=== PATIENT | female | born 1975 | race Caucasian/White ===

== ENCOUNTER 2020-08-10 12:39 | Inpatient (IN) ==
[2020-08-10] MEDS ORDERED: 0.9 % Sodium Chloride 1,000 ML IVC STA (13:17)
[2020-08-10 13:18] LABS: Basophils # 0.1 K/mcL (0.0-0.2); Basophils % 0.6 %; Eosinophils # 0.1 K/mcL (0.0-0.6); Eosinophils % 1.8 %; Hematocrit 48.5 % (35.3-44.9); Hemoglobin 15.1 g/dL (11.5-15.4); Immature Granulocytes % 0.8 % (0-4); Lymphocytes # 1.6 K/mcL (0.6-4.6); Lymphocytes % 19.4 %; Mean Corpuscular HGB Conc 31.1 g/dL (31.6-35.5); Mean Corpuscular Hemoglobin 29.8 pg (28.0-33.3); Mean Corpuscular Volume 95.7 fL (83.0-100.0); Mean Platelet Volume 11.8 fL (9.4-12.4); Monocytes # 0.6 K/mcL (0.0-1.3); Monocytes % 7.4 %; Neutrophils # 5.6 K/mcL (1.6-8.9); Platelet Count 209 K/mcL (140-400); Red Blood Count 5.07 M/mcL (3.82-4.97); Red Cell Distribution Width 16.4 % (11.5-14.5)
[2020-08-10] MEDS ORDERED: 0.9 % Sodium Chloride 1,000 ML IVC ONE (13:21)
[2020-08-10] MEDS ORDERED: *HR* Dextrose 50 % in Water (Vial) 50 ML VIAL IVP PRN ×2 (13:22→16:22)
[2020-08-10 13:28] LABS: VBG HCO3 20 mEq/L (21-27); VBG PCO2 33 mmHg (41-51); VBG PH 7.38 pH Units (7.32-7.42); VBG PO2 143 mmHg (25-50)
[2020-08-10] MEDS ORDERED: Insulin Human Regular 100 UNIT in 0.9 % Sodium Chloride 100 ML IVC SCH ×3 (13:30→16:30)
[2020-08-10 13:49] LABS: Bacteria,Urine Few per hpf (None-Few); Bilirubin,Urine Negative (Negative); Blood,Urine Trace (Negative); Clarity,Urine Clear (Clear); Color,Urine Colorless (Yellow); Glucose,Urine (UA) >=1000 mg/dL (Normal); Ketones,Urine Negative (Negative); Leukocyte Esterase,Urine Negative (Negative); Nitrite,Urine Negative (Negative); Protein,Urine 30 mg/dL (Neg-Trace); RBC,Urine 0-3 per hpf (0-3); Specific Gravity,Urine 1.025 (1.010-1.025); Squamous Epithelial Cell,Urine Few per hpf (None-Few); Transitional Epi Cells,Urine Few per hpf (None-Few); Urobilinogen,Urine Normal (Normal); WBC,Urine 0-3 per hpf (0-3)
[2020-08-10 14:12] LABS: Sodium, Urine 10.5 mEq/L
[2020-08-10 15:01] LABS: Calcium 8.6 mg/dL (8.6-10.3); Magnesium 2.1 mg/dL (1.6-2.6); Potassium 4.7 mEq/L (3.5-5.1)
[2020-08-10] MEDS ORDERED: Naloxone 0.4 MG/ML INJ IVP PRN (16:20)
[2020-08-10] MEDS ORDERED: Ondansetron 4 MG/2 ML VIAL IVP PRN (16:20)
[2020-08-10] MEDS ORDERED: D5% in 0.45% NACL w KCl 20 MEQ/1,000 ML MLS IVC PRN (16:22)
[2020-08-10] MEDS ORDERED: D5% in 0.45% NACL 1,000 ML IVC PRN (16:22)
[2020-08-10] MEDS ORDERED: *HR* LORazepam 0.5 MG TABLET PO PRN (17:03)
[2020-08-10] MEDS: Insulin Human Regular 100 UNIT in 0.9 % Sodium Chloride 100 ML IVC SCH (18:27)
[2020-08-10] MEDS: *HR* Heparin 5,000 UNIT/ML VIAL SQ SCH (18:41)
[2020-08-10] MEDS: 0.9 % Sodium Chloride w KCl 20 MEQ/1,000 ML MLS IVC SCH ×2 (18:46→23:19)
[2020-08-10 19:29] LABS: Calcium 9.2 mg/dL (8.6-10.3); Potassium 3.5 mEq/L (3.5-5.1)
[2020-08-10] MEDS: Gabapentin 400 MG CAPSULE PO SCH (21:42)
[2020-08-10] MEDS: rOPINIRole 0.25 MG TABLET PO SCH (21:42)
[2020-08-10] MEDS: Nystatin SUSP 5 ML UD.LIQ PO SCH (21:43)
[2020-08-10] MEDS: (Doxepin Hcl 10 MG Capsule) PO SCH (21:43)
[2020-08-10] MEDS ORDERED: Ipratropium/Albuterol Neb 3 ML IH SCH (22:00)
[2020-08-10 22:20] LABS: Calcium 9.5 mg/dL (8.6-10.3); Potassium 3.7 mEq/L (3.5-5.1)
[2020-08-10 23:49] LABS: Calcium 9.1 mg/dL (8.6-10.3); Potassium 3.5 mEq/L (3.5-5.1)
[2020-08-11] MEDS ORDERED: Piperacillin/Tazobactam 3.375 GM in 0.9 % Sodium Chloride Mini Bag 100 ML IVPB SCH
[2020-08-11 03:27] LABS: Magnesium 2.2 mg/dL (1.6-2.6); Phosphorous 2.7 mg/dL (2.7-4.5)
[2020-08-11 03:28] LABS: Potassium 4.1 mEq/L (3.5-5.1)
[2020-08-11] MEDS: *HR* Heparin 5,000 UNIT/ML VIAL SQ SCH ×2 (05:01→16:20)
[2020-08-11 05:32] LABS: Estimated Average Glucose 381 mg/dl; Hemoglobin A1C 14.9 %
[2020-08-11] MEDS: Insulin Human Regular 100 UNIT in 0.9 % Sodium Chloride 100 ML IVC SCH (05:51)
[2020-08-11] MEDS ORDERED: D5% in Water 1,000 ML IVC PRN (07:15)
[2020-08-11] MEDS ORDERED: *HR* Dextrose 50 % in Water (Vial) 50 ML VIAL IVP PRN (07:15)
[2020-08-11] MEDS ORDERED: Insulin DETEMIR 100 UNIT/ML X5UNITS SUBQ ONE (07:15)
[2020-08-11] MEDS ORDERED: Dextrose Gel 15 GM/37.5 ML TUBE PO PRN ×2 (07:15)
[2020-08-11 07:31] LABS: Calcium 8.9 mg/dL (8.6-10.3); Potassium 3.3 mEq/L (3.5-5.1)
[2020-08-11] MEDS ORDERED: 0.9 % Sodium Chloride 1,000 ML ONE (08:01)
[2020-08-11] MEDS: Nystatin SUSP 5 ML UD.LIQ PO SCH ×4 (08:07→21:12)
[2020-08-11] MEDS: Cholecalciferol (D-3) 1,000 UNIT (25MCG) TABLET PO SCH (08:07)
[2020-08-11] MEDS: Gabapentin 400 MG CAPSULE PO SCH ×3 (08:07→21:12)
[2020-08-11] MEDS: Insulin LISPRO 300 UNITS/3 ML VIAL SUBQ SCH ×3 (08:56→16:29)
[2020-08-11] MEDS: 0.9 % Sodium Chloride 1,000 ML IVC SCH (18:13)
[2020-08-11] MEDS ORDERED: Insulin DETEMIR 100 UNIT/ML X5UNITS SUBQ SCH (21:00)
[2020-08-11] MEDS: rOPINIRole 0.25 MG TABLET PO SCH (21:11)
[2020-08-11] MEDS: (Doxepin Hcl 10 MG Capsule) PO SCH (21:13)
[2020-08-12 02:04] LABS: Calcium 8.4 mg/dL (8.6-10.3); Potassium 4.4 mEq/L (3.5-5.1)
[2020-08-12] MEDS: 0.9 % Sodium Chloride 1,000 ML IVC SCH (05:59)
[2020-08-12] MEDS: *HR* Heparin 5,000 UNIT/ML VIAL SQ SCH ×2 (05:59→16:27)
[2020-08-12] MEDS: Nystatin SUSP 5 ML UD.LIQ PO SCH ×4 (07:47→19:57)
[2020-08-12] MEDS: Gabapentin 400 MG CAPSULE PO SCH ×3 (07:48→19:57)
[2020-08-12] MEDS: Cholecalciferol (D-3) 1,000 UNIT (25MCG) TABLET PO SCH (07:48)
[2020-08-12] MEDS: Insulin LISPRO 300 UNITS/3 ML VIAL SUBQ SCH ×5 (07:49→16:25)
[2020-08-12] MEDS ORDERED: 0.9 % Sodium Chloride 1,000 ML IVC SCH (08:00)
[2020-08-12] MEDS: rOPINIRole 0.25 MG TABLET PO SCH (19:57)
[2020-08-12] MEDS: (Doxepin Hcl 10 MG Capsule) PO SCH (20:12)
[2020-08-12] MEDS ORDERED: Insulin DETEMIR 100 UNIT/ML X5UNITS SUBQ SCH (21:00)
[2020-08-12] MEDS ORDERED: Insulin LISPRO 300 UNITS/3 ML VIAL SUBQ SCH (21:00)
[2020-08-13 04:02] LABS: Calcium 8.7 mg/dL (8.6-10.3); Potassium 4.1 mEq/L (3.5-5.1)
[2020-08-13] MEDS: *HR* Heparin 5,000 UNIT/ML VIAL SQ SCH (07:00)
[2020-08-13] MEDS: Insulin LISPRO 300 UNITS/3 ML VIAL SUBQ SCH ×2 (08:28)
[2020-08-13] MEDS: Gabapentin 400 MG CAPSULE PO SCH (08:30)
[2020-08-13] MEDS: Nystatin SUSP 5 ML UD.LIQ PO SCH (08:31)
[2020-08-13] MEDS: Cholecalciferol (D-3) 1,000 UNIT (25MCG) TABLET PO SCH (08:31)
[2020-08-13] MEDS ORDERED: amLODIPine 5 MG TABLET PO SCH (09:00)
[2020-08-13 11:01] VITALS: BP 139/95
== END 2020-08-13 11:15 | disposition home or self-care (01) | DRG 420 ==
LOC: 2NNU 12:39 → EMEROOARM 12:39 → SUATTDRO 16:00 → 2NNU 17:36 → 3NENU 08-11 10:22
PROVIDERS: ADMIT Internal Medicine; ATTEND Internal Medicine

== ENCOUNTER 2020-11-29 11:10 | Observation (INO) ==
[2020-11-29 12:13] LABS: Troponin I < 0.03 ng/mL (< 0.04)
[2020-11-29 13:34] LABS: BUN/Creatinine Ratio 10 (6-26); Blood Urea Nitrogen 14 mg/dL (6-20); Calcium 9.4 mg/dL (8.6-10.3); Carbon Dioxide 22 mEq/L (23-29); Chloride 102 mEq/L (98-107); Glucose 104 mg/dL (70-105); Magnesium 1.8 mg/dL (1.6-2.6); Osmolality,Calculated 285 (280-300); Potassium 3.7 mEq/L (3.5-5.1); Sodium 137 mEq/L (136-145); eGFR For African Americans 48 (> 60); eGFR For Non-African Americans 39 (> 60)
[2020-11-29 13:35] LABS: Basophils # 0.1 K/mcL (0.0-0.2); Basophils % 0.4 %; Eosinophils # 0.3 K/mcL (0.0-0.6); Eosinophils % 2.5 %; Hematocrit 47.6 % (35.3-44.9); Hemoglobin 15.4 g/dL (11.5-15.4); Immature Granulocytes % 0.4 % (0-4); Lymphocytes # 2.1 K/mcL (0.6-4.6); Lymphocytes % 17.1 %; Mean Corpuscular HGB Conc 32.4 g/dL (31.6-35.5); Mean Corpuscular Hemoglobin 28.7 pg (28.0-33.3); Mean Corpuscular Volume 88.8 fL (83.0-100.0); Mean Platelet Volume 9.3 fL (9.4-12.4); Monocytes # 0.6 K/mcL (0.0-1.3); Monocytes % 5.2 %; Neutrophils # 9.2 K/mcL (1.6-8.9); Platelet Count 333 K/mcL (140-400); Red Blood Count 5.36 M/mcL (3.82-4.97); Red Cell Distribution Width 16.4 % (11.5-14.5); Segmented Neutrophils % 74.4 %; White Blood Count 12.3 K/mcL (4.3-11.1)
[2020-11-29 13:47] LABS: Thyroid Stimulating Hormone 0.226 mcIU/mL (0.340-5.600)
[2020-11-29] MEDS ORDERED: Ondansetron 4 MG/2 ML VIAL IVP PRN (14:10)
[2020-11-29] MEDS ORDERED: Naloxone 0.4 MG/ML INJ IVP PRN (14:10)
[2020-11-29] MEDS ORDERED: Melatonin 3 MG TABLET PO PRN (14:10)
[2020-11-29] MEDS ORDERED: Acetaminophen 325 MG TABLET PO PRN (14:10)
[2020-11-29] MEDS ORDERED: D5% in Water 1,000 ML IVC PRN (14:14)
[2020-11-29] MEDS ORDERED: *HR* Dextrose 50 % in Water (Vial) 50 ML VIAL IVP PRN (14:14)
[2020-11-29] MEDS ORDERED: Dextrose Gel 15 GM/37.5 ML TUBE PO PRN ×2 (14:14)
[2020-11-29] MEDS ORDERED: Ringers Solution, Lactated 1,000 ML IVC SCH (14:15)
[2020-11-29] MEDS ORDERED: Azithromycin 500 MG in 0.9 % Sodium Chloride 250 ML IVPB ONE (14:25)
[2020-11-29] MEDS: Ipratropium/Albuterol Neb 3 ML IH SCH ×3 (14:52→22:26)
[2020-11-29 14:59] LABS: Triiodothyronine (T3) Free 3.14 pg/mL (2.50-3.90)
[2020-11-29] MEDS ORDERED: cefTRIAXone 1,000 MG in 0.9 % Sodium Chloride Mini Bag 100 ML IVPB SCH (15:00)
[2020-11-29] MEDS: Insulin LISPRO 300 UNITS/3 ML VIAL SUBQ SCH (17:23)
[2020-11-29] MEDS: *HR* Heparin 5,000 UNIT/ML VIAL SQ SCH (17:29)
[2020-11-29] MEDS ORDERED: *HR* LORazepam 0.5 MG TABLET PO PRN (17:39)
[2020-11-29] MEDS ORDERED: Insulin LISPRO 300 UNITS/3 ML VIAL SUBQ SCH (21:00)
[2020-11-29] MEDS ORDERED: Insulin DETEMIR 100 UNIT/ML X5UNITS SUBQ SCH (21:00)
[2020-11-29] MEDS ORDERED: rOPINIRole 0.25 MG TABLET PO SCH (21:00)
[2020-11-30] MEDS: Ipratropium/Albuterol Neb 3 ML IH SCH ×2 (04:08→10:32)
[2020-11-30 04:21] LABS: Estimated Average Glucose 128 mg/dl; Hemoglobin A1C 6.1 %
[2020-11-30 04:30] LABS: Calcium 9.1 mg/dL (8.6-10.3); Chol/HDL Ratio 5.3 (0-4.9); Potassium 3.7 mEq/L (3.5-5.1)
[2020-11-30 04:33] LABS: Basophils % 0.3 %; Eosinophils # 0.3 K/mcL (0.0-0.6); Eosinophils % 2.5 %; Hematocrit 43.2 % (35.3-44.9); Immature Granulocytes % 0.4 % (0-4); Lymphocytes # 2.8 K/mcL (0.6-4.6); Lymphocytes % 22.2 %; Mean Corpuscular HGB Conc 31.5 g/dL (31.6-35.5); Mean Corpuscular Hemoglobin 28.2 pg (28.0-33.3); Mean Corpuscular Volume 89.6 fL (83.0-100.0); Mean Platelet Volume 9.4 fL (9.4-12.4); Monocytes # 0.5 K/mcL (0.0-1.3); Monocytes % 3.9 %; Platelet Count 310 K/mcL (140-400); Red Blood Count 4.82 M/mcL (3.82-4.97); Red Cell Distribution Width 16.1 % (11.5-14.5); Segmented Neutrophils % 70.7 %; White Blood Count 12.7 K/mcL (4.3-11.1)
[2020-11-30 04:34] LABS: Hemoglobin 13.6 g/dL (11.5-15.4)
[2020-11-30] MEDS: *HR* Heparin 5,000 UNIT/ML VIAL SQ SCH (05:35)
[2020-11-30 06:01] LABS: Bilirubin,Urine Negative (Negative); Blood,Urine Negative (Negative); Clarity,Urine Clear (Clear); Color,Urine Light-Yellow (Yellow); Glucose,Urine (UA) Normal (Normal); Ketones,Urine Negative (Negative); Leukocyte Esterase,Urine Trace (Negative); Mucus,Urine Few per lpf (None-Few); Nitrite,Urine Negative (Negative); PH,Urine 6.5 pH Units (5.0-8.0); Protein,Urine 100 mg/dL (Neg-Trace); RBC,Urine 0-3 per hpf (0-3); Specific Gravity,Urine 1.017 (1.010-1.025); Squamous Epithelial Cell,Urine Moderate per hpf (None-Few); WBC,Urine 0-3 per hpf (0-3)
[2020-11-30] MEDS: Insulin LISPRO 300 UNITS/3 ML VIAL SUBQ SCH (07:44)
[2020-11-30 08:01] VITALS: BP 126/86
[2020-11-30] MEDS ORDERED: Regadenoson 0.4 MG/5 ML SYRINGE IVP ONE (08:05)
[2020-11-30] MEDS ORDERED: Loratadine 10 MG TABLET PO SCH (09:00)
[2020-11-30] MEDS ORDERED: Aspirin Enteric Coated 81 MG Tablet PO SCH (09:00)
[2020-11-30] MEDS ORDERED: amLODIPine 5 MG TABLET PO SCH (09:00)
== END 2020-11-30 14:08 | disposition home or self-care (01) ==
LOC: EMEROOARM 11:10 → CDU 11:10 → SUATTDRO 12:45 → CDU 13:21 → 3ANU 11-30 03:03
PROVIDERS: ADMIT Internal Medicine; ATTEND Internal Medicine